=== PATIENT | male | born 1955 | race Caucasian/White ===

== ENCOUNTER 2017-03-24 11:04 | Emergency (ER) | payer OTHER ==
[~2017-03-24] VITALS: Ht 177.8 cm; Wt 98.7 kg
[2017-03-24 13:20] VITALS: BP 140/79
== END 2017-03-24 13:59 | disposition home or self-care (01) ==
LOC: ED 12:20
DX: S61.212A Laceration without foreign body of right middle finger without damage to nail, initial encounter (principal); S41.111A Laceration without foreign body of right upper arm, initial encounter; L03.011 Cellulitis of right finger; I10 Essential (primary) hypertension; G89.11 Acute pain due to trauma; X58.XXXA Exposure to other specified factors, initial encounter; Y93.89 Activity, other specified; Y92.009 Unspecified place in unspecified non-institutional (private) residence as the place of occurrence of the external cause; Y99.8 Other external cause status
CPT/HCPCS: 29130; 99284

== ENCOUNTER 2021-01-10 14:52 | Emergency (ER) | payer OTHER, MEDICARE ==
[~2021-01-10] VITALS: Ht 175.3 cm; Wt 95.0 kg
--- NOTE | 2021-01-10 16:32 | NUR ---
pt to room from lobby
[2021-01-10] MEDS ORDERED: HYDROmorphone 2 MG/ML, 1ML ONE ×2 (16:54→17:45)
[2021-01-10] MEDS ORDERED: HYDROmorphone 1 MG/ML, 1ML INJ IM ONE (17:00)
--- NOTE | 2021-01-10 17:31 | NUR ---
pt presents to ED following mechanical glf down 4 stairs, denies loc, denies head injury, denies midline cervical tenderness. pt c/o left arm and wrist pain following fall, cms intact, pt unable to move left arm secondary to pain. bp and spo2 monitors in place. pt medicated with dilaudid by task RN Jamar. pt states pain now down from 10/10 to 9/10. all results back, chart up for recheck. awaiting md and dispo.
[2021-01-10] MEDS ORDERED: HYDROmorphone 1 MG/ML, 1ML INJ IV ONE ×3 (18:00→18:30)
[2021-01-10] MEDS ORDERED: PROPOFOL 10 MG/ML, 20ML IVPush ONE (18:30)
--- NOTE | 2021-01-10 18:42 | NUR ---
traction attempted s/p second dose of dilauidd, pt did not tolerate. traction stopped per pt request. pt reports 8/10 left arm pain. MD Goldstein notified. RN setting up for procedural sedation at this time.
--- NOTE | 2021-01-10 19:11 | NUR ---
Report received from [facility]. Pt is in bed, in traction with bedside. Plan is for procedural sedation. Went to relief charge nurse who is asking Nishant to assist.
[2021-01-10] MEDS ORDERED: PROPOFOL 10 MG/ML, 20ML ONE (19:15)
--- NOTE | 2021-01-10 19:16 | NUR ---
REPORT TO JÚNIOR HARRIS.
--- NOTE | 2021-01-10 19:39 | NUR ---
, RN and tech bedside currently with patient.
--- NOTE | 2021-01-10 19:51 | NUR ---
PT TOLERATED WELL
--- NOTE | 2021-01-10 19:51 | NUR ---
PROCEDURAL SEDATION. ALL SAFETY MEASURES IN PLACE. SEE PRINTOUT FOR VITALS
[2021-01-10] MEDS ORDERED: OXYcodone IR 5MG TABLET PO ONE (20:00)
[2021-01-10] MEDS ORDERED: OXYcodone IR 5MG TABLET ONE (20:28)
--- NOTE | 2021-01-10 20:39 | NUR ---
PT MEDICATED PER ORDER. PT REQUESTING TO D/C NOW
[2021-01-10 20:59] VITALS: BP 148/80
== END 2021-01-10 21:46 | disposition home or self-care (01) ==
LOC: ED 17:32
DX: S52.502A Unspecified fracture of the lower end of left radius, initial encounter for closed fracture (principal); S52.602A Unspecified fracture of lower end of left ulna, initial encounter for closed fracture; R00.2 Palpitations; I10 Essential (primary) hypertension; W01.0XXA Fall on same level from slipping, tripping and stumbling without subsequent striking against object, initial encounter; Y93.89 Activity, other specified; Y92.009 Unspecified place in unspecified non-institutional (private) residence as the place of occurrence of the external cause; Y99.8 Other external cause status
CPT/HCPCS: 25605; 73020; 73070; 73100; 96374; 96376; 99152; 99285; J1170

== ENCOUNTER 2021-01-12 14:44 | Outpatient (CLI) | payer OTHER, MEDICARE | END 2021-01-12 23:59 | disposition home or self-care (01) | LOC: CFH 14:44 | PROVIDERS: ATTEND Physician Assistant | DX: S52.592A Other fractures of lower end of left radius, initial encounter for closed fracture (principal); S52.692A Other fracture of lower end of left ulna, initial encounter for closed fracture; X58.XXXA Exposure to other specified factors, initial encounter; Y93.89 Activity, other specified; Y92.89 Other specified places as the place of occurrence of the external cause; Y99.8 Other external cause status ==